=== PATIENT | male | born 1980 | race Asian ===

== ENCOUNTER → 2023-08-30 | Outpatient (REF) | payer OTHER ==
[2023-08-30 12:59] LABS: CREATININE, URINE 73.2 MG/DL; MALB URINE SIEMENS < 3.0 MG/L
[2023-08-30 13:12] LABS: Trichomonas vaginalis (AMP) NOT DETECTED (NEGATIVE)
[2023-08-30 13:36] LABS: GC DNA AMPLIFICATION NEGATIVE (NEGATIVE)
[2023-08-30 14:57] LABS: ALBUMIN 4.2 G/DL (3.2-5.2); ALKALINE PHOSPHATASE 64 U/L (46-116); ALT/SGPT 36 U/L (7.0-40); AST/SGOT 18 U/L (<34); BILIRUBIN,TOTAL 0.5 MG/DL (0.3-1.2); BLOOD UREA NITROGEN 9 MG/DL (9-23); CALCIUM LEVEL 9.8 MG/DL (8.5-10.1); CARBON DIOXIDE LEVEL 29 MMOL/L (20-31); CHLORIDE LEVEL 103 MMOL/L (98-107); CHOLESTEROL LEVEL 203 MG/DL (<200); CHOLESTEROL RISK RATIO 5.38 (<5); CREATININE FOR GFR 0.93 MG/DL (0.70-1.30); GLOMERULAR FILTRATION RATE > 60.0 (>60); GLUCOSE, FASTING 78 MG/DL (60-100); HDL CHOLESTEROL 37.7 MG/DL (>40); LDL CHOLESTEROL 134.5 MG/DL (<100); NON-HDL-C 165.3 MG/DL; POTASSIUM SERUM 5.1 MMOL/L (3.5-5.1); SODIUM LEVEL 138 MMOL/L (136-145); TOTAL PROTEIN 7.5 G/DL (5.7-8.2); TRIGLYCERIDES LEVEL 154 MG/DL (<150)
[2023-08-30 14:58] LABS: THYROID STIMULATING HORMONE 1.215 uIU/ML (0.55-4.78)
[2023-08-30 14:59] LABS: TOTAL 25(OH) VITAMIN D 12.8 NG/ML (20.0-100.0)
[2023-08-30 15:09] LABS: HEMOGLOBIN A1c 5.5 % (4.0-6.0)
[2023-08-30 15:29] LABS: HIV 1&2 SCREEN NEGATIVE (NEGATIVE)
[2023-08-30 15:37] LABS: HEPATITIS C VIRUS ABY INDEX < 0.02 INDEX (<0.8)
== END ==
LOC: M LAB REF 11:40
PROVIDERS: ATTEND Physician Assistant
DX: Z11.9 Encounter for screening for infectious and parasitic diseases, unspecified (principal); R03.0 Elevated blood-pressure reading, without diagnosis of hypertension; E66.3 Overweight; Z13.220 Encounter for screening for lipoid disorders; E55.9 Vitamin D deficiency, unspecified

== ENCOUNTER → 2023-11-23 | Outpatient (CLI) | payer OTHER | LOC: M RAD 14:19 | PROVIDERS: ATTEND Physician Assistant | DX: M51.36 Other intervertebral disc degeneration, lumbar region (principal) ==

== ENCOUNTER → 2024-10-30 | Outpatient (REF) | payer OTHER ==
[2024-10-30 18:53] LABS: ALT/SGPT 42 U/L (7.0-40); AST/SGOT 27 U/L (<34); CALCIUM LEVEL 9.7 MG/DL (8.5-10.1); CARBON DIOXIDE LEVEL 28 MMOL/L (20-31); CHLORIDE LEVEL 102 MMOL/L (98-107); CHOLESTEROL LEVEL 202 MG/DL (<200); CHOLESTEROL RISK RATIO 4.92 (<5); CREATININE FOR GFR 1.01 MG/DL (0.70-1.30); GLOMERULAR FILTRATION RATE > 90.0 (>60); LDL CHOLESTEROL 130.4 MG/DL (<100); NON-HDL-C 161.0 MG/DL; POTASSIUM SERUM 4.7 MMOL/L (3.5-5.1); SODIUM LEVEL 142 MMOL/L (136-145); TRIGLYCERIDES LEVEL 153 MG/DL (<150)
[2024-10-30 18:55] LABS: TOTAL 25(OH) VITAMIN D 30.3 NG/ML (20.0-100.0)
[2024-10-30 19:00] LABS: ESTIMATED AVERAGE GLUCOSE 114.0 MG/DL (60-110)
[2024-10-30 19:24] LABS: HEPATITIS C VIRUS ABY INDEX 0.04 INDEX (<0.8)
== END ==
LOC: M LAB REF 17:56
PROVIDERS: ATTEND Physician Assistant
DX: Z78.9 Other specified health status (principal); Z11.9 Encounter for screening for infectious and parasitic diseases, unspecified; Z20.1 Contact with and (suspected) exposure to tuberculosis; E78.5 Hyperlipidemia, unspecified; R03.0 Elevated blood-pressure reading, without diagnosis of hypertension; E55.9 Vitamin D deficiency, unspecified

== ENCOUNTER → 2024-11-20 | Outpatient (CLI) | payer OTHER | LOC: M RAD 14:35 | PROVIDERS: ATTEND Physician Assistant | DX: R22.41 Localized swelling, mass and lump, right lower limb (principal) ==

== ENCOUNTER → 2025-04-09 | Outpatient (CLI) | payer OTHER | LOC: M RAD 15:31 | PROVIDERS: ATTEND Physician Assistant | DX: M53.3 Sacrococcygeal disorders, not elsewhere classified (principal) ==